=== PATIENT | female | born 1960 | race Caucasian/White ===

== ENCOUNTER → 2017-04-21 | Outpatient (CLI) | payer OTHER ==
[~2017-04-21] MED LIST: BUSP10TA PO; CALC1CAP8 PO; CARI350T PO; CHOL2000 PO; DOXE25CA PO; GABA300C10 PO; IBUP800T PO; LEVO1CAP2 PO; METO25TA35 PO; NORT10CA PO; OXYC-229 PO; TRAM50TA2 PO; VARE1TAB21 PO; VENL150C PO; VITA1TAB19 PO
[2017-04-23 03:53] LABS: ANISOCYTOSIS 1+; HYPOCHROMIA 1+; MICROCYTOSIS 1+
[2017-04-23 13:58] LABS: ASPARTATE AMINO TRANSFERASE 19 U/L (15-37); BLOOD UREA NITROGEN 21 mg/dL (7-18)
== END | disposition home or self-care (01) ==
LOC: STAR 16:00
PROVIDERS: ATTEND Specialist
DX: Z01.812 Encounter for preprocedural laboratory examination (principal); Z01.811 Encounter for preprocedural respiratory examination
CPT/HCPCS: 36415; 71020; 80053; 85025; 85610; 85730

== ENCOUNTER 2017-04-28 07:25 | Day surgery (SDC) | payer OTHER ==
[~2017-04-28] VITALS: Ht 175.3 cm; Wt 64.0 kg
[2017-04-28] MEDS ORDERED: LACTATED RINGERS 1,000 ML IV SCH (08:22)
[2017-04-28 08:51] VITALS: BP 118/78
[2017-04-28] MEDS ORDERED: FENTANYL PF 100 MCG/2ML ONE ×2 (09:09→11:08)
[2017-04-28] MEDS ORDERED: MIDAZOLAM 1 MG/ML, 2ML ONE (09:09)
[2017-04-28] MEDS ORDERED: BUPIVACAINE/PF-EPI 0.25% 1:200K ONE (09:33)
[2017-04-28] MEDS ORDERED: GLYCOPYRROLATE 0.2MG/1ML ONE (09:52)
[2017-04-28] MEDS ORDERED: ONDANSETRON 2MG/ML, 2ML ONE (09:52)
[2017-04-28] MEDS ORDERED: ROCURONIUM 10 MG/ML ONE (09:52)
[2017-04-28] MEDS ORDERED: PROPOFOL 10 MG/ML, 20ML ONE (09:52)
[2017-04-28] MEDS ORDERED: CEFOTETAN 2 GM ONE (09:52)
[2017-04-28] MEDS ORDERED: DEXAMETHASONE 4 MG/ML, 1ML ONE (09:52)
[2017-04-28] MEDS ORDERED: NEOSTIGMINE 1 MG/ML, 10ML ONE (09:52)
[2017-04-28] MEDS ORDERED: PROMETHAZINE 25 MG/ML, 1ML IV PRN (10:00)
[2017-04-28] MEDS ORDERED: METOCLOPRAMIDE 5 MG/ML, 2ML IV PRN (10:00)
[2017-04-28] MEDS ORDERED: MEPERIDINE/PF 25MG/0.5ML IVPush PRN (10:00)
[2017-04-28] MEDS ORDERED: ONDANSETRON 2MG/ML, 2ML IVPush PRN (10:00)
[2017-04-28] MEDS ORDERED: OXYcodone 5 MG/5 ML ORAL.SOL UDC PO PRN (10:00)
[2017-04-28] MEDS ORDERED: ACETAMINOPHEN 325 MG TABLET PO PRN (10:00)
[2017-04-28] MEDS ORDERED: ACETAMINOPHEN 650 MG/20.3 ML UDC ONE (11:08)
[2017-04-28] MEDS ORDERED: MEPERIDINE/PF 25MG/0.5ML ONE (11:09)
[2017-04-28] MEDS ORDERED: OXYcodone 5 MG/5 ML ORAL.SOL UDC ONE (11:09)
[2017-04-28] MEDS: FENTANYL PF 100 MCG/2ML IV PRN ×2 (11:14→11:30)
[2017-04-28] MEDS ORDERED: KETOROLAC 30 MG/1 ML ONE (11:16)
[2017-04-28] MEDS ORDERED: KETOROLAC 30 MG/1 ML IVPush ONE (11:30)
[2017-04-28] MEDS ORDERED: HYDROmorphone 1 MG/ML, 1ML ONE (11:42)
[2017-04-28] MEDS: HYDROmorphone 1 MG/ML, 1ML IV PRN ×2 (11:44→11:58)
== END 2017-04-28 15:50 ==
LOC: OUT 07:25
PROVIDERS: ATTEND Specialist
DX: D07.1 Carcinoma in situ of vulva (principal); F32.9 Major depressive disorder, single episode, unspecified; F41.9 Anxiety disorder, unspecified; F17.200 Nicotine dependence, unspecified, uncomplicated; Z96.651 Presence of right artificial knee joint; Z96.649 Presence of unspecified artificial hip joint; Z98.890 Other specified postprocedural states; Z88.5 Allergy status to narcotic agent; Z88.8 Allergy status to other drugs, medicaments and biological substances; Z80.3 Family history of malignant neoplasm of breast; Z80.0 Family history of malignant neoplasm of digestive organs
CPT/HCPCS: 56620; 88307; 88329; J1100; J1170; J1885; J2175; J2250; J2405; J2704; J2710; J3010; J7120; J3490; S0074

== ENCOUNTER → 2017-07-14 | Outpatient (CLI) | payer OTHER ==
[~2017-07-14] MED LIST changes: +IBUP-1223 PO; -IBUP800T PO; -OXYC-229 PO; +OXYC-307 PO
== END | disposition home or self-care (01) ==
LOC: CFH 07:36
PROVIDERS: ATTEND Internal Medicine Geriatric Medicine
DX: Z12.31 Encounter for screening mammogram for malignant neoplasm of breast (principal)
CPT/HCPCS: G0202

== ENCOUNTER 2018-05-19 23:36 | Emergency (ER) | payer OTHER ==
[~2018-05-19] VITALS: Ht 175.3 cm; Wt 61.4 kg
[2018-05-20] MEDS ORDERED: HYDROmorphone 2 MG/ML, 1ML IM ONE
[2018-05-20] MEDS ORDERED: HYDROmorphone 2 MG/ML, 1ML ONE (00:08)
[2018-05-20 02:28] VITALS: BP 123/71
== END 2018-05-20 02:30 | disposition home or self-care (01) ==
LOC: ED 23:59
DX: S72.115A Nondisplaced fracture of greater trochanter of left femur, initial encounter for closed fracture (principal); I10 Essential (primary) hypertension; W18.39XA Other fall on same level, initial encounter; Y93.01 Activity, walking, marching and hiking; Y92.009 Unspecified place in unspecified non-institutional (private) residence as the place of occurrence of the external cause; Y99.8 Other external cause status
CPT/HCPCS: 72110; 73502; 96372; 99284; J1170

== ENCOUNTER 2019-07-26 18:32 | Emergency (ER) | payer OTHER ==
[~2019-07-26] VITALS: Ht 165.1 cm; Wt 70.0 kg
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
[2019-07-26] MEDS ORDERED: MORPHINE SULFATE 4 MG/ML, 1ML IVPush PRN (19:30)
[2019-07-26] MEDS ORDERED: PROMETHAZINE 25 MG/ML, 1ML IM ONE (19:30)
[2019-07-26] MEDS ORDERED: ONDANSETRON 2MG/ML, 2ML IVPush ONE (19:30)
[2019-07-26] MEDS ORDERED: PROMETHAZINE 25 MG/ML, 1ML ONE (19:31)
[2019-07-26] MEDS ORDERED: ONDANSETRON 2MG/ML, 2ML ONE (19:32)
[2019-07-26] MEDS ORDERED: MORPHINE SULFATE 4 MG/ML, 1ML ONE (19:32)
[2019-07-26 20:15] LABS: BASOPHILS # (AUTO) 0.12 x10^3/uL (0-0.1); BASOPHILS % (AUTO) 1 % (0-1); EOSINOPHILS # (AUTO) 0.11 x10^3/uL (0-0.4); EOSINOPHILS % (AUTO) 1 % (1-7); LYMPHOCYTES # (AUTO) 4.46 x10^3/uL (1-3.4); LYMPHOCYTES % (AUTO) 40 % (22-44); MD NO; MEAN CORPUSCULAR HEMOGLOBIN 32.3 pg (27.0-34.8); MEAN CORPUSCULAR HGB CONC 34.1 g/dL (32.4-35.8); MEAN CORPUSCULAR VOLUME 94.6 fL (80-100); MEAN PLATELET VOLUME 8.4 fL (7.4-10.4); MONOCYTES # (AUTO) 0.73 x10^3/uL (0.2-0.8); MONOCYTES % (AUTO) 7 % (2-9); NEUTROPHILS # (AUTO) 5.84 x10^3/uL (1.8-6.8); NEUTROPHILS % (AUTO) 52 % (42-75); PLATELET COUNT 348 x10^3/uL (130-400); RED BLOOD COUNT 5.02 x10^6/uL (3.82-5.3); RED CELL DISTRIBUTION WIDTH 13.9 % (9.6-15.2)
[2019-07-26 20:31] LABS: ANION GAP 18 mmol/L (5-15); CALCIUM 9.1 mg/dL (8.5-10.1); CHLORIDE 106 mmol/L (98-107)
[2019-07-26 20:38] LABS: ALANINE AMINOTRANSFERASE 34 U/L (12-78); ALBUMIN 4.6 g/dL (3.4-5.0); ALKALINE PHOSPHATASE 103 U/L (45-117); BILIRUBIN,TOTAL 0.4 mg/dL (0.2-1.0); CREATININE 1.04 mg/dL (0.55-1.02); TOTAL PROTEIN 8.1 g/dL (6.4-8.2); TROPONIN I < 0.015 ng/mL (0.000-0.045)
[2019-07-26 21:19] VITALS: BP 135/70
--- NOTE | 2019-07-26 21:19 | NUR ---
PT SLEEPING ON ALL MONITORS IN NAD
== END 2019-07-26 23:11 | disposition home or self-care (01) ==
LOC: ED 22:55
DX: K29.20 Alcoholic gastritis without bleeding (principal); F10.220 Alcohol dependence with intoxication, uncomplicated; Y90.0 Blood alcohol level of less than 20 mg/100 ml; R11.2 Nausea with vomiting, unspecified; I10 Essential (primary) hypertension; M54.2 Cervicalgia; G89.29 Other chronic pain; F41.1 Generalized anxiety disorder; F17.200 Nicotine dependence, unspecified, uncomplicated
CPT/HCPCS: 36415; 80053; 80307; 83690; 84484; 85025; 96372; 96374; 96375; 99283; J2270; J2405; J2550

== ENCOUNTER 2020-10-06 11:14 | Emergency (ER) | payer OTHER ==
[~2020-10-06] VITALS: Ht 175.3 cm; Wt 62.0 kg
--- NOTE | 2020-10-06 11:21 | NUR ---
C-COLLAR APPLIED IN TRIAGE
--- NOTE | 2020-10-06 11:49 | NUR ---
[employer]RESPONDENCE CLERK NOTE: PT TO ROOM FROM LOBBY VIA WHEELCHAIR, C COLLAR IN PLACE.
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
[2020-10-06 12:22] VITALS: BP 122/78
[2020-10-06] MEDS ORDERED: METHOCARBAMOL 500 MG TABLET ONE (12:27)
[2020-10-06] MEDS ORDERED: KETOROLAC 30 MG/1 ML ONE (12:27)
[2020-10-06] MEDS ORDERED: METHOCARBAMOL 500 MG TABLET PO ONE (12:30)
[2020-10-06] MEDS ORDERED: KETOROLAC 30 MG/1 ML IM ONE (12:30)
== END 2020-10-06 12:44 | disposition home or self-care (01) ==
LOC: ED 12:19
DX: S16.1XXA Strain of muscle, fascia and tendon at neck level, initial encounter (principal); R51.9 Headache, unspecified; V49.49XA Driver injured in collision with other motor vehicles in traffic accident, initial encounter; M54.6 Pain in thoracic spine; Y93.89 Activity, other specified; Y92.488 Other paved roadways as the place of occurrence of the external cause; Y99.8 Other external cause status
CPT/HCPCS: 72125; 96372; 99284; J1885

== ENCOUNTER 2020-10-21 12:50 | Emergency (ER) | payer OTHER ==
[~2020-10-21] VITALS: Ht 175.3 cm; Wt 59.0 kg
[2020-10-21 14:05] VITALS: BP 143/101
--- NOTE | 2020-10-21 14:06 | NUR ---
PT TO BP, CONT PULSE OX. LAB IN TO DRAW PT, VSS, NO NEEDS AT THIS TIME.
[2020-10-21 14:31] LABS: BASOPHILS % (AUTO) 1 % (0-1); EOSINOPHILS % (AUTO) 1 % (1-7); LYMPHOCYTES % (AUTO) 18 % (22-44); MEAN CORPUSCULAR HEMOGLOBIN 31.2 pg (27.0-34.8); MEAN PLATELET VOLUME 8.3 fL (7.4-10.4); MONOCYTES % (AUTO) 7 % (2-9); NEUTROPHILS % (AUTO) 74 % (42-75); PLATELET COUNT 247 x10^3/uL (130-400); RED CELL DISTRIBUTION WIDTH 13.1 % (9.6-15.2)
[2020-10-21 14:40] LABS: ANION GAP 6 mmol/L (5-15); CALCIUM 8.6 mg/dL (8.5-10.1); CHLORIDE 104 mmol/L (98-107)
[2020-10-21 14:44] LABS: ALANINE AMINOTRANSFERASE 20 U/L (12-78); ALKALINE PHOSPHATASE 83 U/L (45-117); BILIRUBIN,TOTAL 0.4 mg/dL (0.2-1.0)
[2020-10-21 14:48] LABS: SALICYLATE LEVEL < 1.7 mg/dL (2.8-20.0)
[2020-10-21 15:05] LABS: MD NO
--- NOTE | 2020-10-21 15:19 | NUR ---
discharge instructions reviewed
== END 2020-10-21 15:19 | disposition home or self-care (01) ==
LOC: ED 13:26
DX: F19.120 Other psychoactive substance abuse with intoxication, uncomplicated (principal); I10 Essential (primary) hypertension; Z87.891 Personal history of nicotine dependence
CPT/HCPCS: 36415; 80053; 80299; 80329; 85025; 99283; G0480